=== PATIENT | male | born 1965 ===

== ENCOUNTER 2017-12-19 10:36 | Emergency (ER) | payer OTHER ==
[2017-12-19 10:56] VITALS: BP 146/67; PULSE 70; RESP 20; TEMP 98.1; O2SAT 97
--- NOTE | 2017-12-19 11:56 | ED PDOC ---
HPI: Male Pain Time Seen by Provider: 12/19/17 11:41 Chief Complaint (Nursing): Male Genitourinary Chief Complaint (Provider): Foreskin irriation History Per: Patient History/Exam Limitations: no limitations Quality Of Discomfort: Dull Additional Complaint(s): Pt reports rash on the inner foreskin for 1 week. PT reports masturbation but is not sexually active. Pt reports burning discomfort and irritation but no itchiness. No similar in the past. PT denies pain with urination. Past Medical History Reviewed: Historical Data, Nursing Documentation, Vital Signs Vital Signs: Last Vital Signs Temp 98.1 F 12/19/17 10:53 Pulse 70 12/19/17 10:53 Resp 20 12/19/17 10:53 BP 146/67 12/19/17 10:53 Pulse Ox 97 12/19/17 10:53 - Medical History PMH: No Chronic Diseases - Surgical History Surgical History: No Surg Hx - Family History Family History: States: No Known Family Hx - Living Arrangements Living Arrangements: With Family - Social History Current smoker - smoking cessation education provided: No - Home Medications Home Medications: Ambulatory Orders Medication Instructions Recorded Cephalexin [Keflex] 500 mg PO BID #14 capsule 12/19/17 Clotrimazole 1% Cream [Lotrimin 1% 1 applic TOP BID #2 tube 12/19/17 CREAM] - Allergies Allergies/Adverse Reactions: Allergies Allergy/AdvReac Type Severity Reaction Status Date / Time No Known Allergies Allergy Verified 12/19/17 10:52 Review of Systems ROS Statement: Except As Marked, All Systems Reviewed And Found Negative Constitutional: Negative for: Fever, Chills Genitourinary Male: Positive for: Frequency, Rash Physical Exam - Reviewed Nursing Documentation Reviewed: Yes Vital Signs Reviewed: Yes - Physical Exam Appears: Positive for: Well, Non-toxic, No Acute Distress Head Exam: Positive for: ATRAUMATIC, NORMAL INSPECTION, NORMOCEPHALIC Skin: Positive for: Normal Color, Warm, DRY Eye Exam: Positive for: Normal appearance ENT: Positive for: Normal ENT Inspection Neck: Positive for: Normal, Painless ROM Cardiovascular/Chest: Positive for: Regular Rate, Rhythm Respiratory: Positive for: Normal Breath Sounds. Negative for: Accessory Muscle Use, Respiratory Distress Gastrointestinal/Abdominal: Positive for: Normal Exam, Bowel Sounds, Soft Male Genital Exam: Positive for: other ((+) erythematous rash in the inner) Back: Positive for: Normal Inspection Extremity: Positive for: Normal ROM. Negative for: Tenderness Neurologic/Psych: Positive for: Alert, Oriented - ECG O2 Sat by Pulse Oximetry: 97 Disposition - Clinical Impression Clinical Impression: Foreskin problem - Patient ED Disposition Is Patient to be Admitted: No Counseled Patient/Family Regarding: Diagnosis, Need For Followup, Rx Given - Disposition Referrals: Rigoberto Bolivar MD [Medical Doctor] - Disposition: Routine/Home Disposition Time: 11:56 Condition: GOOD Prescriptions: Cephalexin [Keflex] 500 mg PO BID #14 capsule Clotrimazole 1% Cream [Lotrimin 1% CREAM] 1 applic TOP BID #2 tube Instructions: Foreskin Care (ED) Print Language: CUBAN
== END 2017-12-19 12:20 | disposition home or self-care (01) ==
LOC: H.ER 10:36
DX: R21 Rash and other nonspecific skin eruption (principal)

== ENCOUNTER 2019-02-15 01:12 | Emergency (ER) | payer OTHER ==
[2019-02-15 02:25] VITALS: RESP 16
[2019-02-15] MEDS ORDERED: Sodium Chloride 0.9% 1,000 ML IV STA (02:51)
[2019-02-15 03:25] LABS: BASO % 0.3 % (0.0-2.0); EOS # 0.1 K/uL (0.0-0.7); EOS % 1.6 % (0.0-4.0); HEMOGLOBIN 13.5 g/dL (12.0-18.0); LYMPH # 1.6 K/uL (1.0-4.3); LYMPH % 26.1 % (20.0-40.0); MEAN CELL VOLUME 85.1 fl (80.0-94.0); MEAN CORPUSCULAR HEMOGLOBIN 29.1 pg (27.0-31.0); MEAN CORPUSCULAR HGB CONC 34.3 g/dL (33.0-37.0); MEAN PLATELET VOLUME 9.8 fl (7.2-11.7); MONO # 0.9 K/uL (0.0-0.8); MONO % 14.5 % (0.0-10.0); NEUT # 3.6 K/uL (1.8-7.0); NEUT % 57.5 % (50.0-75.0); NRBC % 0.1 % (0.0-0.0); RBC 4.63 Mil/uL (4.40-5.90); RED CELL DISTRIBUTION WIDTH 13.8 % (11.5-14.5); WHITE BLOOD COUNT 6.2 K/uL (4.8-10.8)
[2019-02-15 03:28] LABS: URINE BILIRUBIN NEGATIVE (NEGATIVE); URINE BLOOD NEGATIVE (NEGATIVE); URINE CLARITY CLEAR (Clear); URINE COLOR YELLOW (YELLOW); URINE GLUCOSE (UA) >=500 mg/dL (NEGATIVE); URINE LEUKOCYTE ESTERASE NEG Leu/uL (Negative); URINE PROTEIN NEGATIVE (NEGATIVE); URINE UROBILINOGEN 0.2-1.0 mg/dL (0.2-1.0)
[2019-02-15 03:34] LABS: ALB/GLOB RATIO 1.3 (1.0-2.1); ALBUMIN 3.9 g/dL (3.5-5.0); ALT/SGPT 27 U/L (21-72); AST/SGOT 24 U/L (17-59); BLOOD UREA NITROGEN 16 mg/dl (9-20); CALCIUM 8.2 mg/dL (8.4-10.2); GFR NON-AFRICAN AMERICAN > 60; LIPASE 35 U/L (23-300)
--- NOTE | 2019-02-15 03:45 | ED PDOC ---
HPI: Abdomen Time Seen by Provider: 02/15/19 02:17 Chief Complaint (Nursing): GI Problem Chief Complaint (Provider): abdominal pain V/D x 2 days History Per: Patient History/Exam Limitations: no limitations Onset/Duration Of Symptoms: Days (2) Outside of [place] travel?: No Current Symptoms Are (Timing): Still Present Severity: Moderate Location Of Pain/Discomfort: Diffuse Quality Of Discomfort: Cramping Associated Symptoms: Nausea, Vomiting, Diarrhea, Loss Of Appetite Alleviating Factors: None Last Bowel Movement: Today Additional Complaint(s): Patient is a 53 yo male with no PMHX who presents with abdominal pain associated wityh 12 episodes nonbloody/nonbilious vomiting and 15 episodes nonbloody diarrhea. PAtient also c/o crampy abdominal pain. Past Medical History Reviewed: Historical Data, Nursing Documentation, Vital Signs Vital Signs: Last Vital Signs Temp 98.6 F 02/15/19 02:15 Pulse 64 02/15/19 02:15 Resp 16 02/15/19 02:15 BP 127/73 02/15/19 02:15 Pulse Ox 99 02/15/19 02:15 - Medical History PMH: No Chronic Diseases - Surgical History Surgical History: No Surg Hx - Family History Family History: States: No Known Family Hx - Social History Current smoker - smoking cessation education provided: No Alcohol: None Drugs: Denies - Home Medications Home Medications: Ambulatory Orders Medication Instructions Recorded Cephalexin [Keflex] 500 mg PO BID #14 capsule 12/19/17 Clotrimazole 1% Cream [Lotrimin 1% 1 applic TOP BID #2 tube 12/19/17 CREAM] Dicyclomine [Bentyl] 20 mg PO Q12 PRN #20 tab 02/15/19 Ondansetron ODT [Zofran ODT] 4 mg PO Q6 PRN #8 odt 02/15/19 - Allergies Allergies/Adverse Reactions: Allergies Allergy/AdvReac Type Severity Reaction Status Date / Time No Known Allergies Allergy Verified 12/19/17 10:52 Review of Systems ROS Statement: Except As Marked, All Systems Reviewed And Found Negative Gastrointestinal: Positive for: Nausea, Vomiting, Abdominal Pain, Diarrhea Physical Exam - Reviewed Nursing Documentation Reviewed: Yes - Physical Exam Appears: Positive for: Well, Non-toxic Head Exam: Positive for: ATRAUMATIC, NORMOCEPHALIC Skin: Positive for: Normal Color, Warm, Dry Eye Exam: Positive for: Normal appearance, EOMI, PERRL ENT: Positive for: Normal ENT Inspection Neck: Positive for: Normal, Painless ROM, Supple Cardiovascular/Chest: Positive for: Regular Rate, Rhythm. Negative for: Edema, Murmur Respiratory: Positive for: Normal Breath Sounds. Negative for: Rales, Rhonchi, Wheezing Gastrointestinal/Abdominal: Positive for: Bowel Sounds, Soft, Tenderness (mild diffuse ). Negative for: Distended, Guarding, Rebound Back: Positive for: Normal Inspection. Negative for: L CVA Tenderness, R CVA Tenderness Extremity: Positive for: Normal ROM Neurological/Psych: Positive for: Awake, Alert, Oriented. Negative for: Motor/Sensory Deficits - Laboratory Results Result Diagrams: 02/15/19 03:16 02/15/19 03:16 Lab Results: Total Bilirubin 0.4 mg/dl (0.2-1.3) 02/15/19 03:16 AST 24 U/L (17-59) 02/15/19 03:16 ALT 27 U/L (21-72) 02/15/19 03:16 Alkaline Phosphatase 80 U/L (38-126) 02/15/19 03:16 Total Protein 6.7 G/DL (6.3-8.2) 02/15/19 03:16 Albumin 3.9 g/dL (3.5-5.0) 02/15/19 03:16 Globulin 2.9 gm/dL (2.2-3.9) 02/15/19 03:16 Albumin/Globulin Ratio 1.3 (1.0-2.1) 02/15/19 03:16 Lipase 35 U/L (23-300) 02/15/19 03:16 Urine Color Yellow (YELLOW) 02/15/19 03:16 Urine Clarity Clear (Clear) 02/15/19 03:16 Urine pH 6.0 (5.0-8.0) 02/15/19 03:16 Ur Specific [place] 1.015 (1.003-1.030) 02/15/19 03:16 Urine Protein Negative mg/dL (NEGATIVE) 02/15/19 03:16 Urine Glucose (UA) >=500 mg/dL (NEGATIVE) 02/15/19 03:16 Urine Ketones Negative mg/dL (NEGATIVE) 02/15/19 03:16 Urine Blood Negative (NEGATIVE) 02/15/19 03:16 Urine Nitrate Negative (NEGATIVE) 02/15/19 03:16 Urine Bilirubin Negative (NEGATIVE) 02/15/19 03:16 Urine Urobilinogen 0.2-1.0 mg/dL (0.2-1.0) 02/15/19 03:16 Ur Leukocyte Esterase Neg Roxanne/uL (Negative) 02/15/19 03:16 Urine RBC (Auto) 1 /hpf (0-3) 02/15/19 03:16 Urine Microscopic WBC 1 /hpf (0-5) 02/15/19 03:16 - ECG O2 Sat by Pulse Oximetry: 99 Medical Decision Making Medical Decision Makin yo male with Acute Gastroenetritis Labs, IV fluids/Bentyl/Zofran ordered 3:45 AM Patient reports marked improvement in symptoms Labs reviewed show no clinically significant abnormalities with exception of elevated blood glucose Patient is stable for discharge; referrd to [facility] for furtrher work up of possible underlying diabetes DX AGE Disposition - Clinical Impression Clinical Impression: Gastroenteritis - Disposition Referrals: [facility] [Outside] Disposition Time: 04:22 Condition: STABLE Prescriptions: Dicyclomine [Bentyl] 20 mg PO Q12 PRN #20 tab PRN Reason: abdominal pain/diarrhea Ondansetron ODT [Zofran ODT] 4 mg PO Q6 PRN #8 odt PRN Reason: Nausea/Vomiting Instructions: Viral Gastroenteritis Forms: [facility] (Divehi) Print Language: GREENLANDIC
[2019-02-15 04:38] VITALS: BP 128/77; PULSE 59; TEMP 98.3; O2SAT 100
== END 2019-02-15 04:37 | disposition home or self-care (01) ==
LOC: H.ER 01:12
DX: K52.9 Noninfective gastroenteritis and colitis, unspecified (principal)
CPT/HCPCS: 80053; 81003; 83690; 85025; 96360; 99283; J2405; J7030